=== PATIENT | male | born 1995 | race Caucasian/White ===

== ENCOUNTER 2017-07-03 22:18 | Emergency (ER) | payer OTHER ==
[2017-07-03 22:31] VITALS: BP 113/70
--- NOTE | 2017-07-08 20:53 | ED ---
Carmen Martinez Abhishek, scribed for Tamara Howard MD on 07/03/17 at 2304 . Complex/Multi-Sys Presentation - HPI Summary HPI Summary: The pt is a 21 y/o male [facility] [place] [facility] [place] for [place] under the influence. The pt has no medical complaints and the police reports that the pt is here for a blood draw. The pt also reports no PMHx and that no medications are currently being taken. The patient rates the pain 0/10 in severity. Symptoms aggravated by nothing. Symptoms alleviated by nothing. - History Of Current Complaint Chief Complaint: EDGeneral Time Seen by Provider: 07/03/17 22:27 - Allergies/Home Medications Allergies/Adverse Reactions: Allergies Allergy/AdvReac Type Severity Reaction Status Date / Time No Known Allergies Allergy Verified 06/11/15 20:13 PMH/Surg Hx/FS Hx/Imm Hx Previously Healthy: Yes - No PMHx according to Pt Infectious Disease History: No Infectious Disease History: Denies: Traveled Outside the [place] in Last 30 Days - Family History Known Family History: Positive: None Family History: FHx reviewed and noncontributory. - Social History Occupation: Student Alcohol Use: Occasionally Substance Use Type: Reports: Cocaine Substance Use Comment - Amount & Last Used: "occasionally" Smoking Status (MU): Never Smoked Tobacco Review of Systems - ROS Summary Review of Systems Summary: No medical complaints. Constitutional: Negative Eyes: Negative ENT: Negative Cardiovascular: Negative Respiratory: Negative Gastrointestinal: Negative Genitourinary: Negative Musculoskeletal: Negative Skin: Negative Neurological: Negative Psychological: Normal All Other Systems Reviewed And Are Negative: Yes Physical Exam - Summary Physical Exam Summary: VITAL SIGNS: Reviewed. GENERAL: ~Patient is a well-developed and nourished (MALE) who is lying comfortable in the stretcher. Patient is not in any acute respiratory distress. HEAD AND FACE: No signs of trauma. No ecchymosis, hematomas or skull depressions. No sinus tenderness. EYES: PERRLA, EOMI x 2, No injected conjunctiva, no nystagmus. EARS: Hearing grossly intact. Ear canals and tympanic membranes are within normal limits. MOUTH: Oropharynx within normal limits. NECK: Supple, trachea is midline, no adenopathy, no JVD, no carotid bruit, no c- spine tenderness, neck with full ROM. CHEST: Symmetric, no tenderness at palpation LUNGS: Clear to auscultation bilaterally. No wheezing or crackles. CVS: Regular rate and rhythm, S1 and S2 present, no murmurs or gallops appreciated. ABDOMEN: Soft, non-tender. No signs of distention. No rebound no guarding, and no masses palpated. Bowel sounds are normal. EXTREMITIES: FROM in all major joints, no edema, no cyanosis or clubbing. NEURO: Alert and oriented x 3. No acute neurological deficits. Speech is normal and follows commands. SKIN: Dry and warm Triage Information Reviewed: Yes Vital Signs On Initial Exam: Initial Vitals Temp Pulse Resp BP Pulse Ox 97.8 F 74 16 113/70 99 07/03/17 22:28 07/03/17 22:28 07/03/17 22:28 07/03/17 22:28 07/03/17 22:28 Vital Signs Reviewed: Yes Diagnostics - Vital Signs Vital Signs Temp Pulse Resp BP Pulse Ox 07/03/17 22:28 97.8 F 74 16 113/70 99 - Laboratory Lab Statement: Any lab studies that have been ordered have been reviewed, and results considered in the medical decision making process. Complex Multi-Symp Course/Dx Course Of Treatment: The pt has no medical complaints and is brought in the police in order to recieve a blood draw and blood work. The pt will be discharged to the police and the dx will be blood drug testing for medicolegal reasons. - Diagnoses Provider Diagnoses: Blood drug testing for medicolegal reasons Discharge - Sign-Out/Discharge Documenting (check all that apply): Discharge - Police - Discharge Plan Condition: Stable Disposition: LAW ENFORCEMENT/COURT Patient Education Materials: Medical Clearance for Substance Abuse Treatment ( ED) Referrals: No Primary Care Phys,NOPCP [Primary Care Provider] - Additional Instructions: RETURN TO EMERGENCY DEPARTMENT FOR ANY NEW OR WORSENING SYMPTOMS The documentation as recorded by the Carmen maciel Abhishek accurately reflects the service I personally performed and the decisions made by Anita alvarez Abdul, MD.
== END 2017-07-03 22:49 ==
LOC: ED 22:18
DX: Z04.8 Encounter for examination and observation for other specified reasons (principal)
CPT/HCPCS: 99281